=== PATIENT | male | born 1975 | race Caucasian/White ===

== ENCOUNTER 2017-10-29 01:58 | Emergency (ER) | payer OTHER ==
[~2017-10-29] VITALS: Ht 190.5 cm; Wt 111.0 kg
[2017-10-29 01:59] VITALS: TEMP 36.5; Ht 190.5 cm; Wt 111.0 kg
[2017-10-29] MEDS ORDERED: ONDANSETRON INJ 2 MG/ML 2 ML VIAL IV STA (02:10)
[2017-10-29] MEDS ORDERED: MoRPHine SULFATE 4 MG/ML 1 ML CARP\\VIAL IV STA (02:10)
[2017-10-29] MEDS ORDERED: CLINDAMYCIN 600 MG/54 ML D5W IV ONE (02:15)
[2017-10-29] MEDS ORDERED: HYZ/10015 PO (02:26)
[2017-10-29] MEDS ORDERED: AMLO-110 PO (02:26)
[2017-10-29] MEDS ORDERED: MULT-506 PO (02:26)
[2017-10-29] MEDS ORDERED: LOSA1TAB38 PO (02:27)
[2017-10-29 02:47] LABS: BASO % 0.5 %; BASO ABS # 0.04 K/uL (0-0.2); EOS ABS # 0.16 K/uL (0-0.5); HEMATOCRIT 41.1 % (42-52); HEMOGLOBIN 14.5 g/dL (14.0-18.0); IG# 0.14 K/uL (0.00-0.02); LYMPH % 28.8 %; LYMPH ABS # 2.26 K/uL (1.2-3.4); MEAN CORPUSCULAR HEMOGLOBIN 31.4 pg (25-34); MEAN CORPUSCULAR HGB CONC 35.3 g/dl (32-36); MEAN PLATELET VOLUME 8.7 fL (7.4-10.4); MONO % 8.8 %; MONO ABS # 0.69 K/uL (0.11-0.59); NEUT % 58.1 %; NEUT ABS # 4.55 K/uL (1.4-6.5); PLATELET COUNT 213 K/uL (130-400); RED CELL DISTRIBUTION WIDTH SD 42.2 fL (36.4-46.3); WHITE BLOOD COUNT 7.84 K/uL (4.8-10.8)
[2017-10-29 03:20] LABS: CALCIUM 7.8 mg/dl (8.5-10.1); CREATININE 0.9 mg/dl (0.60-1.40)
[2017-10-29] MEDS ORDERED: KETOROLAC TROMETHAMINE 30 MG/ML VIAL IV STA (03:36)
[2017-10-29 03:44] LABS: POTASSIUM 3.1 mmol/L (3.5-5.1)
[2017-10-29] MEDS ORDERED: POTASSIUM CHLORIDE 10 MEQ TABCR PO STA (03:45)
[2017-10-29] MEDS ORDERED: OPTIRAY 320 IV PRN (04:15)
--- NOTE | 2017-10-29 04:33 | EMERGENCY ROOM VISIT NOTE ---
History First contact with patient: 02:02 Chief Complaint: FACIAL PAIN/INJURY Stated Complaint: HEAD PAIN History of Present Illness The patient is a 42 year old male who presents to the Emergency Room with complaints of right-sided facial pain described as aching, ranging in severity currently 9 out of 10 for the past 2 days it is steadily getting worse. Patient tried Motrin with no improvement of symptoms. Patient also comments of dental pain to that side. Patient denies chest pain, dyspnea, fever, chills, cough, congestion, neck stiffness, sore throat, cold symptoms. He has not seen a dentist in quite some time. Patient has high blood pressure and has been taking his medicines. He does smoke. No drug use. Review of Systems An 10 system review of systems was completed with positives and pertinent negatives listed in the HPI. Past Medical/Surgical History Hypertension, hernia repair Social History Smoking Status: Current Every Day Smoker Smokeless Tobacco Use: No Alcohol Use: occasionally Drug Use: none Marital Status: Housing Status: lives with family Occupation Status: employed Current/Historical Medications Scheduled Amlodipine (Norvasc), 5 MG PO DAILY Losartan Potassium (Cozaar), 100 MG PO DAILY Multivitamin (Multivitamin), 1 TAB PO DAILY Physical Exam Vital Signs Date Time Temp Pulse Resp B/P (MAP) Pulse Ox O2 Delivery O2 Flow Rate FiO2 10/29/17 03:51 94 18 116/82 94 Room Air 10/29/17 03:34 105 18 141/87 95 Room Air 10/29/17 02:30 106 20 151/95 95 Room Air 10/29/17 01:59 36.5 111 18 172/89 95 Room Air Physical Exam VITALS: Vitals are noted on the nurse's note and reviewed by myself. Vital signs hypertensive. GENERAL: White male who appears in pain, in no acute distress, nondiaphoretic, well-developed well-nourished. SKIN: The skin was without rashes, erythema, edema, or bruising. There is no tenting of the skin. Capillary reflex less than 2 seconds. HEAD: Normocephalic atraumatic. Face: Right zygomatic region erythematous and edematous concerning for infection. Increased pain with opening and closing the jaw. Dental exam: Extensive dental decay with no palpable abscess. No Maldonado's angina EARS: External auditory canals clear, tympanic membranes pearly akers without erythema or effusion bilaterally. EYES: Pupils equal round and reactive to light and accommodation. Conjunctivae without injection, sclerae without icterus. Extraocular movements intact. NOSE: Patent, turbinates without inflammation or discharge. Right-sided sinus tenderness. MOUTH: Mucous membranes moist. Pharynx without erythema or exudate. Uvula midline. Airway patent. Tongue does not deviate. NECK: Supple without nuchal rigidity. No lymphadenopathy. No thyromegaly. Cervical spine is nontender. No JVD. HEART: Regular rate and rhythm without murmurs gallops or rubs. LUNGS: Clear to auscultation bilaterally without wheezes, rales or rhonchi. No retractions or accessory muscle use. ABDOMEN: Positive bowel sounds x 4. Normal tympanic percussion. Soft, nontender, without masses or organomegaly. Kincaid sign negative. No guarding or rebound tenderness. No CVA tenderness MUSCULOSKELETAL: No muscle atrophy, erythema, or edema noted. NEURO: Patient was alert and oriented to person place and time. Normal sensation to light and sharp touch. No focal neurological deficits. Medical Decision & Procedures Laboratory Results 10/29/17 02:25 Red Blood Count 4.62, Mean Corpuscular Volume 89.0, Mean Corpuscular Hemoglobin 31.4, Mean Corpuscular Hemoglobin Concent 35.3, Mean Platelet Volume 8.7, Neutrophils (%) (Auto) 58.1, Lymphocytes (%) (Auto) 28.8, Monocytes (%) (Auto) 8.8, Eosinophils (%) (Auto) 2.0, Basophils (%) (Auto) 0.5, Neutrophils # (Auto) 4.55, Lymphocytes # (Auto) 2.26, Monocytes # (Auto) 0.69, Eosinophils # (Auto) 0.16, Basophils # (Auto) 0.04 10/29/17 02:25 Test 10/29/17 02:25 White Blood Count 7.84 K/uL (4.8-10.8) Red Blood Count 4.62 M/uL (4.7-6.1) Hemoglobin 14.5 g/dL (14.0-18.0) Hematocrit 41.1 % (42-52) Mean Corpuscular Volume 89.0 fL (80-100) Mean Corpuscular Hemoglobin 31.4 pg (25-34) Mean Corpuscular Hemoglobin Concent 35.3 g/dl (32-36) Platelet Count 213 K/uL (130-400) Mean Platelet Volume 8.7 fL (7.4-10.4) Neutrophils (%) (Auto) 58.1 % Lymphocytes (%) (Auto) 28.8 % Monocytes (%) (Auto) 8.8 % Eosinophils (%) (Auto) 2.0 % Basophils (%) (Auto) 0.5 % Neutrophils # (Auto) 4.55 K/uL (1.4-6.5) Lymphocytes # (Auto) 2.26 K/uL (1.2-3.4) Monocytes # (Auto) 0.69 K/uL (0.11-0.59) Eosinophils # (Auto) 0.16 K/uL (0-0.5) Basophils # (Auto) 0.04 K/uL (0-0.2) RDW Standard Deviation 42.2 fL (36.4-46.3) RDW Coefficient of Variation 13.0 % (11.5-14.5) Immature Granulocyte % (Auto) 1.8 % Immature Granulocyte # (Auto) 0.14 K/uL (0.00-0.02) Anion Gap 9.0 mmol/L (3-11) Est Creatinine Clear Calc Drug Dose 143.8 ml/min Estimated GFR () 121.7 Estimated GFR (Non- 105.0 BUN/Creatinine Ratio 24.8 (10-20) Calcium Level 7.8 mg/dl (8.5-10.1) Medications Administered Medications (Trade) Dose Ordered Sig/Kayli Route Start Time Stop Time Status Last Admin Dose Admin Morphine Sulfate (MoRPHine SULFATE INJ) 4 mg NOW STAT IV 10/29/17 02:10 10/29/17 02:12 DC 10/29/17 02:22 4 MG Clindamycin Phosphate (Cleocin 600mg/ 54ml D5W) 600 mg ONE ONCE IV 10/29/17 02:15 10/29/17 02:16 DC 10/29/17 02:15 600 MG Ondansetron HCl (Zofran Inj) 4 mg NOW STAT IV 10/29/17 02:10 10/29/17 02:12 DC 10/29/17 02:21 4 MG Ketorolac Tromethamine (Toradol Inj) 10 mg NOW STAT IV 10/29/17 03:36 10/29/17 03:38 DC 10/29/17 03:48 10 MG Potassium Chloride (Klor-Con M10) 40 meq NOW STAT PO 10/29/17 03:45 10/29/17 03:46 DC 10/29/17 03:50 40 MEQ ED Course Prior records reviewed and summarized as above. Triage Nursing notes reviewed. Additional history obtained from family The patient's history was concerning for swelling and redness of the right side of the face with pain Differential diagnosis: Etiologies such as dental infection, cellulitis, abscess, MRSA infection, Maldonado 's angina, sinusitis, dental infection, as well as others were entertained.. Physical examination: As above ER treatment provided: Clindamycin, morphine, Zofran On reassessment the patient felt better. Diagnostics interpreted by me: The labs revealed hyperglycemia without DKA. No leukocytosis Imaging studies: CT FACIAL: No facial fractures. The paranasal sinuses and mastoid air cells are clear. The facial soft tissues demonstrate no significant abnormal findings. Nonspecific bilateral level II cervical lymph nodes noted. Orbits and globes unremarkable. Visualized intracranial examination without significant findings. Radiologist: Jose Baltazar MD This appears to be dental infection with dental pain with facial cellulitis. Patient does have poor dentition. This most likely is from his dental infection. Patient had no signs of meningitis. No signs of airway compromise. No Maldonado's angina. Patient was advised to take antibiotics as directed and to follow-up with dentistry for definitive care for his dental problem. He was advised to return to the ER immediately for high fevers, lethargy, facial swelling, worsening signs or symptoms or as needed. By the evaluation outlined above emergent etiologies such as abscess, Maldonado angina, as well as others were deemed relatively unlikely. The pt informed about the findings as listed above. All questions were answered and pleased with the treatment. Return instructions were outlined and the patient was discharged in stable condition. Outpatient prescription management: Clindamycin, OxyIR Referral: The patient was referred to dentistry and primary care physician for follow-up in 2 to 3 days for a recheck of the current condition. Case reviewed with my attending The chart was completed utilizing [employer] voice recognition software. Grammatical errors, random word insertions, pronoun errors, and incomplete sentences are an occassional consequence of this system due to software limitations, ambient noise, and hardware issues. Any formal questions or concerns about the content, text, or information contained within the body of this dictation should be directly addressed to the physician executive administrative assistant for clarification. Medical Decision As above [place] Drug Monitoring Program Search Results: patient reviewed within database, no issues identified Medication Reconcilliation Current Medication List: was personally reviewed by me Blood Pressure Screening Patient's blood pressure: Elevated blood pressure Blood pressure disposition: Referred to PCP Impression Primary Impression: Facial cellulitis Additional Impressions: Pain, dental Dental infection Hyperglycemia Hypokalemia Departure Information Dispostion Home / Self-Care Condition GOOD Referrals No Doctor, Assigned (PCP) Patient Instructions My [facility] [employer] Additional Instructions Your blood sugar and blood pressure were high today. Recheck this with family care this week. Clindamycin 150mg: Take one pill 4 times daily for 10 days for your infection. Take with food, but avoid dairy. Avoid prolonged sun exposure since this medication makes you temporarily more susceptible to sunburns. All antibiotics can cause diarrhea. If this occurs and you feel worse or it does not resolve in 1-2 days follow up with your doctor or return to the Emergency Department as this could be signs of serious underlying problems. Any medication can cause an allergic reaction, stop the pills immediately and return to the ER for rash, hives, breathing difficulties, or swelling. Oxycodone (OxyIR) 5mg: Take 1-2 pills every four hours for breakthrough pain. Avoid alcohol, operating machinery or dangerous equipment, working on ladders or roofs, DRIVING, or situations where being under the influence may be dangerous. It is recommended to use an [id number]-njk-[id number] stool softener such as Colace, 100mg twice daily while taking this medication to avoid constipation. Ibuprofen(Motrin, Advil) may be used for fever or pain. Use 600mg every six hours as needed. Take with food. Avoid using more than 2400mg in a 24 hour period. Do not use 2400mg per day for more than three consecutive days without physician direction. Prolonged inappropriate use can lead to stomach upset or ulcers. This medication can be taken if you need to drive, work, or perform activities which may be dangerous when taking narcotic pain medication. (AND/OR) Acetaminophen(Tylenol) may be used for fever or pain. Use 1000mg every six hours as needed. Avoid using more than 3000mg in a 24 hour period. This medication can be taken if you need to drive, work, or perform activities which may be dangerous when taking narcotic pain medication. Bison teeth twice a day, floss daily and do warm saltwater gargles 3 times a day. See a dentist as soon as possible for definitive care for your dental problem. Follow-up family care for your blood pressure and blood sugar. Return to ER sooner for facial swelling, fever, redness, worsening signs or symptoms or as needed. Problem Qualifiers
[2017-10-29] MEDS ORDERED: OXYC1TAB3 PO (04:36)
[2017-10-29] MEDS ORDERED: CLIN150C PO (04:36)
[2017-10-29] MEDS ORDERED: CLINDAMYCIN 150MG HOME PACK PO ONE (04:45)
[2017-10-29] MEDS ORDERED: OXYCODONE IR HOME PACK PO ONE (04:45)
[2017-10-29 05:10] VITALS: BP 128/77; PULSE 98; O2SAT 94
--- NOTE | 2017-10-29 06:29 | DIAGNOSTIC IMAGING REPORT ---
FACIAL-MAXILLOFACIAL WITH CLINICAL HISTORY: severe right facial pain/swelling, ? infx pain. Edema. TECHNIQUE: Transaxial acquisition of multi axial reformatted images COMPARISON STUDY: None FINDINGS: No evidence for mass or collection. Major salivary glands including submandibular glands appear unremarkable. Subcutaneous fat shows unremarkable density characteristics. Several small subcentimeter reactive cervical nodes are present. The airways patent. The glottic and subglottic regions are unremarkable. IMPRESSION: No acute process by CT criteria. The above report was generated using voice recognition software. It may contain grammatical, syntax or spelling errors. Electronically signed by: Alon Toribio M.D. 10/29/2017 6:28 AM Dictated Date/Time: 10/29/2017 6:26 AM
== END 2017-10-29 05:14 | disposition home or self-care (01) ==
LOC: C.EDB 01:59 → C.EDA 05:14
DX: L03.211 Cellulitis of face (principal); K04.7 Periapical abscess without sinus; R73.9 Hyperglycemia, unspecified; E87.6 Hypokalemia; F17.210 Nicotine dependence, cigarettes, uncomplicated; I10 Essential (primary) hypertension; Z79.899 Other long term (current) drug therapy